=== PATIENT | female | born 1985 | race Caucasian/White ===

== ENCOUNTER 2016-03-24 23:22 | Emergency (ER) | payer SELFPAY ==
[2016-03-25 00:34] LABS: ABSOLUTE NEUTROPHIL COUNT 23.6 K/mm3 (1.8-7.7); BASO # 0.1 K/mm3 (0.0-0.2); BASO % 0.2 % (0.2-1.0); EOS # 0.2 (0.0-0.5); EOS % 0.6 % (0.9-2.9); HEMATOCRIT 30.3 % (37.0-47.0); HEMOGLOBIN 10.1 gm/l (12.0-16.0); IMM NEUT # 0.7 K/mm3 (0-0.2); IMM NEUT% 2.3 % (0-1); LYMPH % 9.6 % (15-45); MEAN CELL VOLUME 79.1 fl (81.0-99.0); MEAN CORPUSCULAR HEMOGLOBIN 26.4 pg (27.0-31.0); MEAN CORPUSCULAR HGB CONC 33.3 g/dl (33.0-37.0); MEAN PLATELET VOLUME 9.5 fl (7.4-10.4); MONO # 3.6 (0.0-0.8); MONO % 11.6 % (4-12); NEUT % 75.7 % (43-75); PLATELET COUNT 358 K/mm3 (130-400)
[2016-03-25 00:45] LABS: ALB/GLOB RATIO 0.7 (>1.0); ALBUMIN 3.4 gm/dL (3.5-5.7); ALT/SGPT 11 U/L (7-52); BLOOD UREA NITROGEN 27 mg/dL (7-25); BUN/CREATININE RATIO 17 (6-20); CALCIUM 10.6 mg/dL (8.6-10.3); GLOMERULAR FILTRATION RATE 38 mL/min (60-107); MAGNESIUM 1.8 mg/dL (1.9-2.7)
[2016-03-25 00:51] LABS: INR 1.11; PROTHROMBIN TIME 11.8 SECONDS (9.3-11.4)
[2016-03-25 01:09] LABS: C-REACTIVE PROTEIN 33.5 mg/dl (<1.0)
[2016-03-25] MEDS ORDERED: MORPHINE SULFATE 4 MG/ML SYRINGE ONE (01:13)
[2016-03-25 01:21] LABS: LIPASE < 3 U/L (11-82)
[2016-03-25 01:27] LABS: ANISOCYTOSIS 1+; BAND 14 % (0-10); BASOPHIL 0 % (0-1); EOSINOPHIL 1 % (1-3); LYMPHOCYTE 10 % (15-45); MONOCYTE 7 % (4-12); NEUTROPHILS 68 % (43-75); ORDER PATH REVIEW YES; PLATELET ESTIMATE NORMAL (NORMAL); TOTAL CELLS COUNTED 100
[2016-03-25] MEDS ORDERED: METRONIDAZOLE 500 MG/NS 100 ML 100 ML IV ONE (02:04)
[2016-03-25] MEDS ORDERED: LACTATED RINGERS 1,000 ML ONE (02:04)
[2016-03-25 03:28] LABS: SPECIFIC GRAVITY 1.015 (1.001-1.030); URINE BILIRUBIN NEGATIVE (NEGATIVE); URINE BLOOD 4+ (NEGATIVE); URINE GLUCOSE (UA) NEGATIVE (NEGATIVE); URINE LEUKOCYTE ESTERASE 2+ (NEGATIVE); URINE NITRITE POSITIVE (NEGATIVE); URINE PROTEIN 1+ (NEGATIVE); URINE UROBILINOGEN NORMAL (0-1 mg/dl)
[2016-03-25 03:30] LABS: URINE APPEARANCE CLOUDY; URINE COLOR YELLOW
[2016-03-25 03:45] LABS: URINE RBC 15-20 /hpf; URINE WBC >100 /hpf
[2016-03-25 03:46] LABS: URINE BACTERIA 3+; URINE CASTS 0-2 HYALINE /lpf; URINE EPITHELIAL CELLS 15-20 /hpf
--- NOTE | 2016-03-25 09:51 | RAD ---
Exam: Portable chest COMPARISON: 03/16/2012 INDICATION: Multiple abscesses. Tachycardia, wound infection. Finding: A semierect AP portable view of the chest demonstrates a normal cardiac silhouette. Lungs are well-inflated. There is no focal airspace disease or pleural effusion. Bones of the chest wall within normal limits. IMPRESSION: No acute pulmonary process.
== END 2016-03-25 03:24 | disposition short-term general hospital (02) ==
LOC: ED 23:22
DX: L02.416 Cutaneous abscess of left lower limb (principal); F41.9 Anxiety disorder, unspecified; F31.9 Bipolar disorder, unspecified; F17.210 Nicotine dependence, cigarettes, uncomplicated
CPT/HCPCS: 83605; 83690; 84703; 86141; 85025; 82550; 87040 ×2; 87070; 80053; 87186 ×3; 83735; 85610; 81001; 87077 ×2; 71010; 96375; 99284; 96365; 96366; 96367; 99285; J2270; J7120